=== PATIENT | male | born 1940 | race Caucasian/White ===

== ENCOUNTER → 2017-01-11 | Outpatient (CLI) | payer MEDICARE, MEDICAID ==
[~2017-01-11] MED LIST: ATEN25TA PO; COLA100C2; NASA1SPR; PRAV20TA2 PO; VICO5TAB
--- NOTE | 2017-01-11 14:23 | REP ---
Clinical: Phimosis. Preoperative testing. Comparison: 01/05/2010 . Technique: PA and lateral. Findings: The mediastinum and cardiac silhouette are normal. Airway is patent and midline. The lung armstrong are clear and without acute consolidation, effusion, or pneumothorax. The skeletal structures are intact and normal. Impression: 1. No acute cardiopulmonary process. Signed by Gerry Azevedo MD 01/11/2017 02:14 P
[2017-01-11 16:28] LABS: MEAN CORPUSCULAR HEMOGLOBIN 30.5 pg (27.0-33.0); MEAN CORPUSCULAR HGB CONC 34.1 g/dl (32.0-36.5); MEAN CORPUSCULAR VOLUME 89.7 fl (80.0-96.0); RED CELL DISTRIBUTION WIDTH 13.1 % (11.5-14.5); WHITE BLOOD COUNT 6.8 K/mm3 (4.0-10.0)
[2017-01-11 17:15] LABS: ALBUMIN 3.8 GM/DL (3.2-5.2); ALBUMIN/GLOBULIN RATIO 1.09 (1.00-1.93); ALKALINE PHOSPHATASE 50 U/L (45-117); ALT/SGPT 29 U/L (12-78); ANION GAP 5 MEQ/L (8-16); AST/SGOT 20 U/L (15-37); BILIRUBIN,TOTAL 0.5 MG/DL (0.2-1.0); BLOOD UREA NITROGEN 21 MG/DL (7-18); CALCIUM LEVEL 8.8 MG/DL (8.8-10.2); CARBON DIOXIDE LEVEL 30 MEQ/L (21-32); CHLORIDE LEVEL 106 MEQ/L (98-107); CREATININE FOR GFR 1.07 MG/DL (0.70-1.30); GLOMERULAR FILTRATION RATE > 60.0 (>42); GLUCOSE, FASTING 93 MG/DL (83-110); POTASSIUM SERUM 4.6 MEQ/L (3.5-5.1); SODIUM LEVEL 141 MEQ/L (136-145); TOTAL PROTEIN 7.3 GM/DL (6.4-8.2)
== END ==
LOC: M SMT 13:57
PROVIDERS: ATTEND Nurse Practitioner Family
DX: Z01.818 Encounter for other preprocedural examination (principal); N47.1 Phimosis; I10 Essential (primary) hypertension; E78.00 Pure hypercholesterolemia, unspecified; N40.0 Benign prostatic hyperplasia without lower urinary tract symptoms; Z79.899 Other long term (current) drug therapy

== ENCOUNTER → 2017-02-01 | Day surgery (SDC) | payer MEDICARE, MEDICAID ==
[~2017-02-01] VITALS: Ht 172.7 cm; Wt 72.6 kg
[~2017-02-01] MED LIST changes: +BACITRACIN OINT 30GM As Ordered ONE; +GLYCOPYRROLATE INJ 0.2 MG/ML 2 ML VIAL ONE; +LIDOCAINE 2% INJ 100 MG/5 ML SDV (FOR ANES.) As Ordered ONE; +LR 1,000 ML IV ONE; +LR 1,000 ML IV SCH; +MIDAZOLAM INJ 2 MG/2 ML VIAL (J2250) As Ordered ONE; +ONDANSETRON 4MG/2ML VIAL (J2405) IV PRN; +PROPOFOL 200 MG/20 ML VIAL As Ordered ONE; +ePHEDrine SULFATE 25 MG/5 ML(5MG/ML) SYRINGE ONE; +fentaNYL 100 MCG/2 ML INJECTION (J3010) As Ordered ONE; +fentaNYL 100 MCG/2 ML INJECTION (J3010) IV PRN; +traMADol 50 MG TAB PO PRN
[2017-02-01 17:30] VITALS: BP 159/88
--- NOTE | 2017-02-03 07:23 | RO ---
DATE OF PROCEDURE: 02/01/2017 PREPROCEDURE DIAGNOSIS: Phimosis. POSTPROCEDURE DIAGNOSIS: Phimosis. PROCEDURE: Circumcision. SURGEON: Dr. Leon Malcolm LIQUID FLOOR AND WALL APPLIER: None. ANESTHESIA: General. OPERATIVE INDICATIONS: This is a 76-year-old male who underwent a partial circumcision several years ago. He has recently developed a phimotic ring on his foreskin. He therefore requested to undergo repeat circumcision. DESCRIPTION OF PROCEDURE: The patient was brought to the operating room and general anesthesia was induced. Prophylactic antibiotics were infused. He was then placed in the supine position and prepped and draped in the usual sterile fashion. At this point, circumcising incisions were made around the inner foreskin just proximal to the coronal sulcus and also along the outer foreskin at the level of the glans penis. Once these circumcising incisions were made, all the foreskin in between the incisions was removed with Bovie electrocautery. The skin on the shaft of the penis was then reapproximated to the glans using interrupted #3-0 chromic sutures. This was done after hemostasis was obtained using Bovie electrocautery. Once the skin was reapproximated, dressings were then applied, including a Oumar dressing followed by a Coban dressing. After dressings were applied, this marked the conclusion of the procedure. The patient was then awakened from anesthesia and then transferred to the recovery room in stable condition. ESTIMATED BLOOD LOSS: 5 mL. COMPLICATIONS: None. SPECIMEN: Foreskin. PLAN: The patient will remove his dressing in two days. He will followup in the clinic in a few weeks for a postoperative visit. CARRILLO
== END | disposition home or self-care (01) ==
LOC: M SDC 10:17
PROVIDERS: ATTEND Urology
DX: N47.1 Phimosis (principal); I10 Essential (primary) hypertension; N40.0 Benign prostatic hyperplasia without lower urinary tract symptoms; E78.9 Disorder of lipoprotein metabolism, unspecified; J30.9 Allergic rhinitis, unspecified; Z79.899 Other long term (current) drug therapy
CPT/HCPCS: 54161; 88304; J0690; J2250; J3010

== ENCOUNTER 2017-09-18 10:17 | Day surgery (SDC) | payer MEDICARE, MEDICAID ==
[~2017-09-18 10:17] MED LIST changes: +ACETAMINOPHEN 325 MG TAB PO; -ATEN25TA PO; -BACITRACIN OINT 30GM As Ordered ONE; -COLA100C2; -GLYCOPYRROLATE INJ 0.2 MG/ML 2 ML VIAL ONE; -LIDOCAINE 2% INJ 100 MG/5 ML SDV (FOR ANES.) As Ordered ONE; -LR 1,000 ML IV ONE; -LR 1,000 ML IV SCH; -MIDAZOLAM INJ 2 MG/2 ML VIAL (J2250) As Ordered ONE; -NASA1SPR; -ONDANSETRON 4MG/2ML VIAL (J2405) IV PRN; +PHENYLEPHRINE HCL 10 % OPHTH. SOL 5ML OD; -PRAV20TA2 PO; +PROPARACAINE 0.5% OPHTH SOL 15ML OD; -PROPOFOL 200 MG/20 ML VIAL As Ordered ONE; -VICO5TAB; -ePHEDrine SULFATE 25 MG/5 ML(5MG/ML) SYRINGE ONE; -fentaNYL 100 MCG/2 ML INJECTION (J3010) As Ordered ONE; -fentaNYL 100 MCG/2 ML INJECTION (J3010) IV PRN; -traMADol 50 MG TAB PO PRN
[2017-09-18] MEDS ORDERED: CYCLOPENTOLATE 2% OPHTH SOLN 2ML BTL As Ordered (10:21)
[2017-09-18] MEDS ORDERED: PHENYLEPHRINE 2.5% OPHTH SOL 2ML As Ordered (10:21)
[2017-09-18] MEDS ORDERED: OFLOXACIN 0.3 % (OCUFLOX) OPTH SOL 5ML As Ordered (10:21)
[2017-09-18] MEDS ORDERED: TROPICAMIDE 1% OPHTH SOLN 2ML As Ordered (10:21)
[2017-09-18] MEDS ORDERED: MIDAZOLAM INJ 2 MG/2 ML VIAL (J2250) As Ordered (10:30)
[2017-09-18] MEDS ORDERED: fentaNYL 100 MCG/2 ML INJECTION (J3010) As Ordered (10:30)
[2017-09-18] MEDS ORDERED: D5W/0.2% SODIUM CHLORIDE 1,000 ML IV (10:30)
[2017-09-18] MEDS: CYCLOPENTOLATE 2% OPHTH SOLN 2ML BTL OD (10:40)
[2017-09-18] MEDS ORDERED: AcetaZOLAMIDE 500 MG ER CAP PO (10:45)
[2017-09-18] MEDS ORDERED: KETOROLAC 0.5% OPHTH SOLN OD (10:45)
[2017-09-18] MEDS ORDERED: TRIMETHOBENZAMIDE 300 MG CAP PO (10:45)
[2017-09-18] MEDS: LIDOCAINE 3.5 % 1ML OPHTH TOPICAL GEL OU (10:45)
[2017-09-18] MEDS: TROPICAMIDE 1% OPHTH SOLN 2ML OD (10:45)
[2017-09-18] MEDS: OFLOXACIN 0.3 % (OCUFLOX) OPTH SOL 5ML OD (10:45)
[2017-09-18] MEDS: PHENYLEPHRINE 2.5% OPHTH SOL 2ML OD (10:48)
[2017-09-18] MEDS: POVIDONE-IODINE 5% OPHTH PREP SOL 30ML As Ordered (12:30)
[2017-09-18] MEDS: LIDOCAINE 1% SDV 5 ML VIAL As Ordered (12:36)
[2017-09-18] MEDS: HEALON DUET (HEALON 10MG/ML 0.55ML & HEALON ENDOCOAT 30MG/ML 0.85ML) As Ordered (12:36)
[2017-09-18] MEDS: BSS with VANC/TOB/EPI for EYE CASES IR (12:36)
[2017-09-18] MEDS: MOXIFLOXACIN IN BSS 0.25MG/0.25ML INTRACAMERAL INJ (OR EYE ONLY)(J2280) As Ordered (12:36)
[2017-09-18] MEDS: TRIAMCINOLONE PRES FR 40 MG/ML 1ML(TRIESENCE)(OR EYE ONLY)(J3300 PER 1MG) As Ordered (12:36)
== END 2017-09-18 13:40 | disposition home or self-care (01) ==
LOC: M SDC 10:17
DX: H26.9 Unspecified cataract (principal); I10 Essential (primary) hypertension; E78.00 Pure hypercholesterolemia, unspecified; N40.0 Benign prostatic hyperplasia without lower urinary tract symptoms; Z79.899 Other long term (current) drug therapy
CPT/HCPCS: 66984

== ENCOUNTER 2017-11-13 10:25 | Day surgery (SDC) | payer MEDICARE, MEDICAID ==
[2017-11-13] MEDS: MOXIFLOXACIN IN BSS 0.25MG/0.25ML INTRACAMERAL INJ (OR EYE ONLY)(J2280) As Ordered (06:39)
[~2017-11-13 10:25] MED LIST changes: +MIDAZOLAM INJ 2 MG/2 ML VIAL (J2250) As Ordered; -PHENYLEPHRINE HCL 10 % OPHTH. SOL 5ML OD; +PHENYLEPHRINE HCL 10 % OPHTH. SOL 5ML OS; -PROPARACAINE 0.5% OPHTH SOL 15ML OD; +fentaNYL 100 MCG/2 ML INJECTION (J3010) As Ordered
[2017-11-13] MEDS: LIDOCAINE 3.5 % 1ML OPHTH TOPICAL GEL OU (10:50)
[2017-11-13] MEDS: CYCLOPENTOLATE 2% OPHTH SOLN 2ML BTL OS (10:52)
[2017-11-13] MEDS: PHENYLEPHRINE 2.5% OPHTH SOL 2ML OS (10:52)
[2017-11-13] MEDS: TROPICAMIDE 1% OPHTH SOLN 2ML OS (10:52)
[2017-11-13] MEDS: OFLOXACIN 0.3 % (OCUFLOX) OPTH SOL 5ML OS (10:52)
[2017-11-13] MEDS: POVIDONE-IODINE 5% OPHTH PREP SOL 30ML As Ordered (13:09)
[2017-11-13] MEDS: LIDOCAINE 1% SDV 5 ML VIAL As Ordered (13:09)
[2017-11-13] MEDS: TRIAMCINOLONE PRES FR 40 MG/ML 1ML(TRIESENCE)(OR EYE ONLY)(J3300 PER 1MG) As Ordered (13:09)
[2017-11-13] MEDS: HEALON DUET (HEALON 10MG/ML 0.55ML & HEALON ENDOCOAT 30MG/ML 0.85ML) As Ordered (13:09)
[2017-11-13] MEDS: BSS with VANC/TOB/EPI for EYE CASES IR (13:10)
[2017-11-13] MEDS ORDERED: TRIMETHOBENZAMIDE 300 MG CAP PO (13:30)
[2017-11-13] MEDS ORDERED: ACETAMINOPHEN TAB 650MG DOSE (2X325MG) PO (13:30)
[2017-11-13] MEDS: AcetaZOLAMIDE 500 MG ER CAP PO (13:34)
== END 2017-11-13 14:25 | disposition home or self-care (01) ==
LOC: M SDC 10:25
DX: H26.9 Unspecified cataract (principal); I10 Essential (primary) hypertension; N40.0 Benign prostatic hyperplasia without lower urinary tract symptoms; E78.00 Pure hypercholesterolemia, unspecified; Z79.899 Other long term (current) drug therapy
CPT/HCPCS: 66984

== ENCOUNTER 2018-06-24 06:11 | Day surgery (SDC) | payer MEDICARE, MEDICAID ==
[~2018-06-24 06:11] MED LIST changes: -ACETAMINOPHEN 325 MG TAB PO; -MIDAZOLAM INJ 2 MG/2 ML VIAL (J2250) As Ordered; -PHENYLEPHRINE HCL 10 % OPHTH. SOL 5ML OS; +SLF 3 ML SYR IV; -fentaNYL 100 MCG/2 ML INJECTION (J3010) As Ordered
[2018-06-24] MEDS: LIDOCAINE 3.5 % 1ML OPHTH TOPICAL GEL OU (06:59)
[2018-06-24] MEDS ORDERED: MIDAZOLAM INJ 2 MG/2 ML VIAL (J2250) As Ordered (07:05)
[2018-06-24] MEDS ORDERED: fentaNYL 100 MCG/2 ML INJECTION (J3010) As Ordered (07:05)
[2018-06-24] MEDS: POVIDONE-IODINE 5% OPHTH PREP SOL 30ML As Ordered (07:37)
[2018-06-24] MEDS ORDERED: PROPOFOL 200 MG/20 ML VIAL As Ordered (07:49)
[2018-06-24] MEDS: SODIUM BICARBONATE 8.4% INJ 50MEQ 50 ML VIAL As Ordered (07:57)
[2018-06-24] MEDS: LIDOCAINE 2% W/EPIN INJ 20ML **PRES FREE As Ordered (07:57)
[2018-06-24] MEDS: TETRACAINE 0.5% OPHTH SOLN 4ML As Ordered (08:02)
[2018-06-24] MEDS: TOBRADEX OPHTH OINT 3.5 GM As Ordered (08:02)
== END 2018-06-24 08:48 | disposition home or self-care (01) ==
LOC: M SDC 06:11
DX: H02.831 Dermatochalasis of right upper eyelid (principal); H02.834 Dermatochalasis of left upper eyelid; I10 Essential (primary) hypertension; E78.5 Hyperlipidemia, unspecified; Z79.899 Other long term (current) drug therapy; N40.0 Benign prostatic hyperplasia without lower urinary tract symptoms
CPT/HCPCS: 67924

== ENCOUNTER 2018-12-09 06:03 | Day surgery (SDC) | payer MEDICARE, MEDICAID ==
[~2018-12-09] VITALS: Ht 170.2 cm; Wt 75.3 kg
[~2018-12-09 06:03] MED LIST changes: +ATEN25TA PO; +COLA100C2; +NASA1SPR; +PRAV20TA2 PO; -SLF 3 ML SYR IV; +VICO5TAB
[2018-12-09] MEDS ORDERED: SODIUM BICARBONATE 8.4% INJ 50MEQ 50 ML VIAL As Ordered ONE (06:35)
[2018-12-09] MEDS ORDERED: LIDOCAINE 2% W/EPIN INJ 20ML **PRES FREE As Ordered ONE (06:35)
[2018-12-09] MEDS ORDERED: POVIDONE-IODINE 5% OPHTH PREP SOL 30ML As Ordered ONE (06:35)
[2018-12-09] MEDS ORDERED: CIPROFLOXACIN 0.3% OPHTH OINTMENT As Ordered ONE (06:42)
[2018-12-09] MEDS ORDERED: LIDOCAINE 3.5 % 1ML OPHTH TOPICAL GEL OU ONE (07:00)
[2018-12-09] MEDS ORDERED: MIDAZOLAM INJ 2 MG/2 ML VIAL (J2250) As Ordered ONE (07:16)
[2018-12-09] MEDS ORDERED: fentaNYL 100 MCG/2 ML INJECTION (J3010) As Ordered ONE (08:20)
[2018-12-09] MEDS ORDERED: PROPOFOL 200 MG/20 ML VIAL As Ordered ONE (08:23)
[2018-12-09] MEDS ORDERED: dexameTHASONE 4 MG/ML 1ML VIAL (J1100) As Ordered ONE (08:25)
[2018-12-09] MEDS ORDERED: ONDANSETRON 4MG/2ML VIAL (J2405) As Ordered ONE (08:25)
[2018-12-09 09:55] VITALS: BP 179/84
--- NOTE | 2018-12-09 14:07 | RO ---
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 PROCEDURE: Bilateral lower lid blepharoplasty. SURGEON: Dev Gleason MD BATON TWIRLER: None. ANESTHESIA: COMPLICATIONS: None. INDICATION: Heavy lower lids interfering with glasses and the visual field. Inferior. PROCEDURE IN DETAIL: The patient was brought to the operating room and laid in supine position. The eye was prepped and draped in a sterile fashion for bilateral upper lid surgery, following which, both upper lids were marked with a sterile marker along the lines of proposed skin excision. Both lower lids were then infiltrated with 2% lidocaine with 1:100,000 epinephrine. Attention was first diverted to the right lower lid where with the help of electrocautery the skin was incised along the premarked area. Subcutaneous dissection was carried out with blunt Shailesh scissors, following which, hemostasis was obtained as necessary. Medial, central and lateral fat pads were then identified by deeper dissections about 10-12 mm below the lash line. These fat pads were identified and then cauterized at the base and removed. The wound was then closed using #6-0 Vicryl sutures for deeper stroma and then #6-0 nylon sutures for the skin. Exactly the same procedure was done for the left lower lid. At the end of the case, ice packs were applied, and the patient was returned to the recovery room in stable condition.
== END 2018-12-09 10:10 | disposition home or self-care (01) ==
LOC: M SDC 06:03
PROVIDERS: ATTEND Ophthalmology
DX: H02.835 Dermatochalasis of left lower eyelid (principal); H02.832 Dermatochalasis of right lower eyelid; I10 Essential (primary) hypertension; E78.5 Hyperlipidemia, unspecified; N40.0 Benign prostatic hyperplasia without lower urinary tract symptoms; Z79.899 Other long term (current) drug therapy
CPT/HCPCS: 15821; 88302; J1100; J2250; J2405; J3010

== ENCOUNTER → 2021-04-14 | Outpatient (REF) | payer MEDICARE, MEDICAID, OTHER | LOC: M LAB REF 16:22 | PROVIDERS: ATTEND Physician Assistant | DX: C44.219 Basal cell carcinoma of skin of left ear and external auricular canal (principal) | CPT/HCPCS: 88305; G0463 ==

== ENCOUNTER → 2023-03-11 | Outpatient (REF) | payer MEDICARE, MEDICAID | LOC: M SFHCDERM 17:29 | PROVIDERS: ATTEND Physician Assistant | DX: L82.0 Inflamed seborrheic keratosis (principal) ==

== ENCOUNTER → 2023-06-14 | Outpatient (REF) | payer MEDICARE, MEDICAID | LOC: M LAB REF 16:38 | PROVIDERS: ATTEND Nurse Practitioner Family | DX: R30.0 Dysuria (principal) ==

== ENCOUNTER → 2023-07-03 | Outpatient (CLI) | payer MEDICARE, MEDICAID ==
[2023-07-03 13:43] LABS: ALBUMIN 3.9 G/DL (3.2-5.2); ALKALINE PHOSPHATASE 46 U/L (46-116); ALT/SGPT 40 U/L (7.0-40); AST/SGOT 33 U/L (<34); BILIRUBIN,TOTAL 1.1 MG/DL (0.3-1.2); BLOOD UREA NITROGEN 19 MG/DL (9-23); CALCIUM LEVEL 9.2 MG/DL (8.3-10.6); CARBON DIOXIDE LEVEL 27 MMOL/L (20-31); CHLORIDE LEVEL 107 MMOL/L (98-107); CHOLESTEROL LEVEL 151 MG/DL (<200); CHOLESTEROL RISK RATIO 3.57 (<5); CK-MB VALUE MASS 1.3 NG/ML (<3.6); CREATININE FOR GFR 1.07 MG/DL (0.70-1.30); GLOMERULAR FILTRATION RATE > 60.0 (>35); GLUCOSE, FASTING 91 MG/DL (74-106); HDL CHOLESTEROL 42.2 MG/DL (>40); LDL CHOLESTEROL 88.2 MG/DL (<100); NON-HDL-C 108.8 MG/DL; POTASSIUM SERUM 4.1 MMOL/L (3.5-5.1); SODIUM LEVEL 137 MMOL/L (136-145); THYROID STIMULATING HORMONE 2.136 uIU/ML (0.55-4.78); TOTAL PROTEIN 7.1 G/DL (5.7-8.2); TRIGLYCERIDES LEVEL 103 MG/DL (<150)
[2023-07-03 13:44] LABS: FREE T4 1.14 NG/DL (0.89-1.76)
[2023-07-03 13:50] LABS: CPK CREATINE PHOSPHOKINASE 158 U/L (46-171); MB/CK RELATIVE INDEX 0.82 (< OR =4)
[2023-07-03 13:57] LABS: BASO # 0.1 10^3/uL (0.0-0.2); BASO % 1.3 % (0.0-1.0); EOS # 0.2 10^3/uL (0.0-0.5); HEMATOCRIT 45.2 % (42.0-52.0); HEMOGLOBIN 15.3 g/dl (13.5-17.5); LYMPH # 1.6 10^3/uL (1.5-5.0); LYMPH % 22.7 % (24.0-44.0); MEAN CORPUSCULAR HEMOGLOBIN 30.2 pg (27.0-33.0); MEAN CORPUSCULAR HGB CONC 33.8 g/dl (32.0-36.5); MEAN CORPUSCULAR VOLUME 89.3 fl (80.0-96.0); MONO % 13.7 % (2.0-8.0); NEUTROPHILS # 4.1 10^3/uL (1.5-8.5); NEUTROPHILS % 58.7 % (36.0-66.0); PLATELET COUNT, AUTOMATED 178 10^3/uL (150-450); RED BLOOD COUNT 5.06 10^6/uL (4.30-6.10); WHITE BLOOD COUNT 6.9 10^3/uL (4.0-10.0)
== END ==
LOC: M LAB 12:26
PROVIDERS: ATTEND Physician Assistant
DX: R06.00 Dyspnea, unspecified (principal); E78.2 Mixed hyperlipidemia

== ENCOUNTER → 2023-07-04 | Outpatient (CLI) | payer MEDICARE, MEDICAID ==
[~2023-07-04] MED LIST changes: +ISOVUE-370 76% 100ML VIAL ONE
== END ==
LOC: M PLAIMG 08:28
PROVIDERS: ATTEND Physician Assistant
DX: R06.02 Shortness of breath (principal)
CPT/HCPCS: 71275; Q9967

== ENCOUNTER 2023-07-19 13:24 | Emergency (ER) | payer MEDICARE, MEDICAID ==
[~2023-07-19] VITALS: Ht 172.7 cm; Wt 76.0 kg
[~2023-07-19 13:24] MED LIST changes: -ISOVUE-370 76% 100ML VIAL ONE
[2023-07-19] MEDS ORDERED: NITROGLYCERIN 0.4MG SUBL TABLET SL PRN (14:00)
[2023-07-19] MEDS ORDERED: ASPIRIN 81MG CHEW TABLET PO ONE (14:00)
[2023-07-19 14:14] VITALS: BP 162/100
[2023-07-19 14:25] LABS: BASO # 0.1 10^3/uL (0.0-0.2); BASO % 1.1 % (0.0-1.0); EOS # 0.2 10^3/uL (0.0-0.5); EOS % 2.1 % (0.0-3.0); HEMATOCRIT 46.4 % (42.0-52.0); LYMPH % 22.2 % (24.0-44.0); MEAN CORPUSCULAR HGB CONC 34.5 g/dl (32.0-36.5); MEAN CORPUSCULAR VOLUME 86.9 fl (80.0-96.0); MONO # 1.2 10^3/uL (0.0-0.8); MONO % 13.4 % (2.0-8.0); NEUTROPHILS # 5.4 10^3/uL (1.5-8.5); NEUTROPHILS % 60.4 % (36.0-66.0); PLATELET COUNT, AUTOMATED 182 10^3/uL (150-450); RED BLOOD COUNT 5.34 10^6/uL (4.30-6.10)
[2023-07-19 14:49] LABS: CK-MB VALUE MASS 14.8 NG/ML (<3.6)
[2023-07-19 14:52] LABS: BLOOD UREA NITROGEN 20 MG/DL (9-23); CARBON DIOXIDE LEVEL 29 MMOL/L (20-31); CHLORIDE LEVEL 108 MMOL/L (98-107); CREATININE FOR GFR 0.99 MG/DL (0.70-1.30); GLOMERULAR FILTRATION RATE > 60.0 (>35); GLUCOSE, FASTING 89 MG/DL (74-106); SODIUM LEVEL 142 MMOL/L (136-145)
[2023-07-19 14:53] LABS: CPK CREATINE PHOSPHOKINASE 198 U/L (46-171); MB/CK RELATIVE INDEX 7.47 (< OR =4)
[2023-07-19] MEDS ORDERED: HEPARIN SOD (PORCINE) 5000UNITS/ML 1ML VIAL/SYRINGE IV ONE (15:10)
[2023-07-19] MEDS ORDERED: HEPARIN DRIP 25,000 UNITS in IV 1 EA IV SCH (15:10)
[2023-07-19 15:45] VITALS: BP 169/108; O2SAT 95
[2023-07-19 15:52] LABS: CK-MB VALUE MASS 13.9 NG/ML (<3.6)
[2023-07-19 15:54] LABS: MB/CK RELATIVE INDEX 6.71 (< OR =4)
[2023-07-19 15:57] LABS: INR 1.13; PROTHROMBIN TIME 14.2 SECONDS (12.5-14.5)
[2023-07-19 15:58] LABS: PARTIAL THROMBOPLASTIN TIME 33.2 SECONDS (24.8-34.2)
[2023-07-19 16:04] VITALS: TEMP 98
== END 2023-07-19 18:42 | disposition short-term general hospital (02) ==
LOC: M ED 13:24
DX: I21.4 Non-ST elevation (NSTEMI) myocardial infarction (principal); I20.0 Unstable angina; I10 Essential (primary) hypertension; Z79.899 Other long term (current) drug therapy

== ENCOUNTER → 2023-10-03 | Outpatient (CLI) | payer MEDICARE, MEDICAID | LOC: M PLAIMG 12:20 | PROVIDERS: ATTEND Physician Assistant | DX: R91.8 Other nonspecific abnormal finding of lung field (principal) ==

== ENCOUNTER 2024-02-07 10:09 | Emergency (ER) | payer MEDICARE, MEDICAID ==
[~2024-02-07] VITALS: Ht 172.7 cm; Wt 76.8 kg
[2024-02-07] MEDS ORDERED: CLOP75TA2 (10:24)
[2024-02-07] MEDS ORDERED: MINO100C4 (10:24)
[2024-02-07] MEDS ORDERED: TAMS1CAP17 (10:28)
[2024-02-07] MEDS ORDERED: ECOT81TA5 PO (10:28)
[2024-02-07] MEDS ORDERED: METO1TAB32 (10:28)
[2024-02-07] MEDS ORDERED: VALS1TAB66 (10:28)
[2024-02-07] MEDS: ONDANSETRON 4MG 2ML VIAL IV ONE (10:43)
[2024-02-07] MEDS: NS 500 ML IV ONE (10:43)
[2024-02-07 11:11] LABS: BASO # 0.1 10^3/uL (0.0-0.2); BASO % 0.9 % (0.0-1.0); EOS # 0.4 10^3/uL (0.0-0.5); EOS % 4.7 % (0.0-3.0); HEMATOCRIT 39.9 % (42.0-52.0); HEMOGLOBIN 13.7 g/dl (13.5-17.5); LYMPH # 1.1 10^3/uL (1.5-5.0); LYMPH % 11.3 % (24.0-44.0); MEAN CORPUSCULAR HEMOGLOBIN 30.2 pg (27.0-33.0); MEAN CORPUSCULAR HGB CONC 34.3 g/dl (32.0-36.5); MEAN CORPUSCULAR VOLUME 87.9 fl (80.0-96.0); MONO # 1.1 10^3/uL (0.0-0.8); MONO % 12.2 % (2.0-8.0); NEUTROPHILS # 6.6 10^3/uL (1.5-8.5); NEUTROPHILS % 70.6 % (36.0-66.0); PLATELET COUNT, AUTOMATED 129 10^3/uL (150-450); RED BLOOD COUNT 4.54 10^6/uL (4.30-6.10); WHITE BLOOD COUNT 9.3 10^3/uL (4.0-10.0)
[2024-02-07] MEDS: LIDOCAINE 2% 5ML JELLY UROJET TOP ONE (11:30)
[2024-02-07 11:37] LABS: LIPASE 35 U/L (12-53)
[2024-02-07 11:38] LABS: AMYLASE 79 U/L (30-118)
[2024-02-07 11:39] LABS: ALBUMIN 3.5 G/DL (3.2-5.2); ALKALINE PHOSPHATASE 62 U/L (46-116); ALT/SGPT 22 U/L (7.0-40); AST/SGOT 21 U/L (<34); BILIRUBIN,DIRECT 0.5 MG/DL (<0.4); BILIRUBIN,TOTAL 1.4 MG/DL (0.3-1.2); BLOOD UREA NITROGEN 19 MG/DL (9-23); CALCIUM LEVEL 8.1 MG/DL (8.3-10.6); CARBON DIOXIDE LEVEL 24 MMOL/L (20-31); CHLORIDE LEVEL 106 MMOL/L (98-107); CK-MB VALUE MASS < 1.0 NG/ML (<3.6); GLOMERULAR FILTRATION RATE > 60.0 (>35); GLUCOSE, FASTING 101 MG/DL (74-106); SODIUM LEVEL 137 MMOL/L (136-145); TOTAL PROTEIN 6.2 G/DL (5.7-8.2)
[2024-02-07 11:40] LABS: CPK CREATINE PHOSPHOKINASE 61 U/L (46-171); MB/CK RELATIVE INDEX 1.63 (< OR =4)
[2024-02-07 12:28] LABS: CK-MB VALUE MASS < 1.0 NG/ML (<3.6)
[2024-02-07 12:31] LABS: CPK CREATINE PHOSPHOKINASE 62 U/L (46-171); MB/CK RELATIVE INDEX 1.61 (< OR =4)
[2024-02-07 14:15] VITALS: BP 110/69; TEMP 97.6; O2SAT 92
== END 2024-02-07 14:32 | disposition home or self-care (01) ==
LOC: M ED 10:09 → EDBD 10:09 → M ED 14:32
DX: R11.0 Nausea (principal); R55 Syncope and collapse; I44.0 Atrioventricular block, first degree; I25.2 Old myocardial infarction; I10 Essential (primary) hypertension; Z79.1 Long term (current) use of non-steroidal anti-inflammatories (NSAID); Z79.899 Other long term (current) drug therapy
CPT/HCPCS: 71045; 80047; 80048; 80076; 81001; 82150; 82550; 82553; 83605; 83690; 84484; 85025; 87040; 93005; 93041; 96374; 99285; J2405

== ENCOUNTER 2024-02-11 22:40 | Emergency (ER) | payer MEDICARE, MEDICAID ==
[~2024-02-11 22:40] MED LIST changes: +CLOP75TA2; +ECOT81TA5 PO; +METO1TAB32; +MINO100C4; +TAMS1CAP17; +VALS1TAB66
[2024-02-11] MEDS: METOPROLOL TART 25 MG TABLET PO ONE (23:09)
[2024-02-11 23:13] LABS: BASO # 0.1 10^3/uL (0.0-0.2); BASO % 0.4 % (0.0-1.0); EOS # 0.3 10^3/uL (0.0-0.5); EOS % 2.5 % (0.0-3.0); HEMATOCRIT 36.3 % (42.0-52.0); HEMOGLOBIN 12.7 g/dl (13.5-17.5); LYMPH # 1.1 10^3/uL (1.5-5.0); LYMPH % 8.9 % (24.0-44.0); MEAN CORPUSCULAR HEMOGLOBIN 30.2 pg (27.0-33.0); MEAN CORPUSCULAR VOLUME 86.2 fl (80.0-96.0); MONO # 1.6 10^3/uL (0.0-0.8); NEUTROPHILS % 74.7 % (36.0-66.0); PLATELET COUNT, AUTOMATED 187 10^3/uL (150-450); RED BLOOD COUNT 4.21 10^6/uL (4.30-6.10); WHITE BLOOD COUNT 12.1 10^3/uL (4.0-10.0)
[2024-02-11] MEDS: METOPROLOL 5 MG/5 ML VIAL IV PRN (23:13)
[2024-02-11 23:25] LABS: INR 1.31; PARTIAL THROMBOPLASTIN TIME 34.6 SECONDS (24.8-34.2); PROTHROMBIN TIME 15.9 SECONDS (12.5-14.5)
[2024-02-11 23:41] LABS: CK-MB VALUE MASS < 1.0 NG/ML (<3.6)
[2024-02-11 23:42] LABS: CPK CREATINE PHOSPHOKINASE 134 U/L (46-171); MB/CK RELATIVE INDEX 0.74 (< OR =4)
[2024-02-11 23:43] VITALS: BP 102/78
[2024-02-11 23:52] LABS: BLOOD UREA NITROGEN 18 MG/DL (9-23); CARBON DIOXIDE LEVEL 22 MMOL/L (20-31); CHLORIDE LEVEL 108 MMOL/L (98-107); CREATININE FOR GFR 0.94 MG/DL (0.70-1.30); GLOMERULAR FILTRATION RATE > 60.0 (>35); GLUCOSE, FASTING 123 MG/DL (74-106); POTASSIUM SERUM 4.1 MMOL/L (3.5-5.1); SODIUM LEVEL 137 MMOL/L (136-145)
[2024-02-12] MEDS ORDERED: ISOVUE-370 76% 100ML VIAL As Ordered ONE (00:29)
[2024-02-12 00:30] LABS: CK-MB VALUE MASS < 1.0 NG/ML (<3.6)
[2024-02-12 00:31] LABS: CPK CREATINE PHOSPHOKINASE 149 U/L (46-171); MB/CK RELATIVE INDEX 0.67 (< OR =4)
[2024-02-12] MEDS: CLOPIDOGREL 75 MG TAB PO ONE (02:46)
[2024-02-12] MEDS: ASPIRIN 325 MG TAB PO ONE (02:46)
[2024-02-12] MEDS: FUROSEMIDE 40MG/4ML VIAL IV ONE (02:47)
[2024-02-12 07:01] VITALS: BP 119/85; TEMP 98.5; O2SAT 97
== END 2024-02-12 07:08 | disposition short-term general hospital (02) ==
LOC: M ED 22:40
DX: I48.91 Unspecified atrial fibrillation (principal); R79.89 Other specified abnormal findings of blood chemistry; I50.22 Chronic systolic (congestive) heart failure; I25.119 Atherosclerotic heart disease of native coronary artery with unspecified angina pectoris; I11.0 Hypertensive heart disease with heart failure; R78.5 Finding of other psychotropic drug in blood; N40.0 Benign prostatic hyperplasia without lower urinary tract symptoms; Z79.1 Long term (current) use of non-steroidal anti-inflammatories (NSAID); Z79.899 Other long term (current) drug therapy
CPT/HCPCS: 71045; 71275; 80048; 81001; 82550; 82553; 83605; 83880; 84484; 85025; 85610; 85730; 87086; 93005; 93041; 94760; 96374; 96375; 99285; J1940; Q9967

== ENCOUNTER → 2024-09-16 | Outpatient (CLI) | payer MEDICARE, MEDICAID | LOC: M LAB 15:49 | PROVIDERS: ATTEND Physician Assistant | DX: H47.011 Ischemic optic neuropathy, right eye (principal) ==